=== PATIENT | male | born 1980 | race Hispanic/Latino ===

== ENCOUNTER 2023-09-26 10:09 | Emergency (ER) | payer SELFPAY ==
[~2023-09-26 10:09] MED LIST: Iopamidol-370 76% 500 ML MDV (1 ML CHARGE) ONE
[2023-09-26] MEDS ORDERED: Ondansetron PF 4 MG/2 ML Vial ONE (10:44)
[2023-09-26] MEDS ORDERED: Morphine 4 MG/ML VIAL ONE (10:44)
[2023-09-26 10:58] LABS: Hematocrit 41.5 % (42.0-52.0); Hemoglobin 14.3 g/dL (14.0-18.0); Mean Corpuscular HGB CONC 34.5 g/dL (32.0-36.0); Mean Corpuscular Hemoglobin 29.9 pg (27.0-31.0); Mean Corpuscular Volume 86.6 fL (78.0-98.0); Mean Platelet Volume 11.5 fL (7.4-10.4); Platelet Count 236 10x3/uL (130-400); RBC Distribution Width 12.6 % (11.5-14.5); Red Blood Cell (RBC) Count 4.79 mill/uL (4.70-6.10)
[2023-09-26 11:05] LABS: ALT (SGPT) 18 U/L (8-55); AST (SGOT) 28 U/L (5-34); Albumin 4.2 g/dL (3.5-5.0); Alkaline Phosphatase 97 U/L (40-110); Anion Gap 14 mmol/L (10-20); BUN (Urea Nitrogen) 10 mg/dL (8.9-20.6); Bilirubin, Total 0.6 mg/dL (0.2-1.2); Calc. Creatinine Clearance 0 mL/min (70-130); Calcium 9.4 mg/dL (7.8-10.44); Carbon Dioxide 20 mmol/L (22-29); Chloride 109 mmol/L (98-107); Estimated GFR 95; Glucose 102 mg/dL (70-105); Lipase 25 U/L (8-78); Potassium 3.8 mmol/L (3.5-5.1); Protein, Total 7.2 g/dL (6.0-8.3); Sodium 139 mmol/L (136-145)
[2023-09-26 12:18] LABS: Band 8 % (5-11); Lymphocytes 22 % (21-51); Metamyelocyte 1 % (0-0); Monocytes 5 % (0-10); Neutrophil 59 % (42-75); Platelet Adequacy Comment Platelets Normal; RBC Morphology Within Normal Limits; Reactive Lymphocytes 3 % (0-10)
== END 2023-09-26 13:17 | disposition home or self-care (01) ==
LOC: ERS 10:09
DX: M54.6 Pain in thoracic spine (principal); M54.50 Low back pain, unspecified; W14.XXXA Fall from tree, initial encounter
CPT/HCPCS: 70450; 71045; 71260; 72125; 72170; 74177; 80053; 83690; 85025; 96374; 96375; J2270; J2405; Q9967